=== PATIENT | female | born 1955 | race Caucasian/White ===

== ENCOUNTER → 2021-07-14 | Outpatient (CLI) | payer MEDICARE, MEDICAID ==
[~2021-07-14] VITALS: Ht 152 cm; Wt 53.0 kg
[~2021-07-14] MED LIST: ASPI-1238 PO; BUPR150T24 PO; CALC-140 PO; CATHETER FLUSH 10 ML SYR IV PRN; DESV50TA PO; GABA-488 PO; IBUP-1780 PO; LEVO75TA6 PO; MIRA50TA PO; MTP25TSR PO; MULT-1044 PO; NF-ESOM40C PO; NRT10C PO; PSYL0.526 PO; REGADENOSON 0.4 MG/5 ML SYR (LEXISCAN) IV ONE; ROPI0.5T4 PO; SIMV10TA26 PO; TOLT4CAP26 PO; TOPI50TA13 PO; VALA10007 PO; WARF-48 PO
[2021-07-14 09:57] VITALS: BP 111/62
--- NOTE | 2021-07-14 11:59 | NUCLEAR STRESS TEST ---
REGADENOSON NUCLEAR STRESS Date of procedure: 07/14/2021. Primary care provider: Chico Barth DO Admitting physician: Ifeanyi Alvarez Jr., MD. INDICATION: Abnormal electrocardiogram. BASELINE ELECTROCARDIOGRAM: Sinus rhythm with low voltage in the precordial leads and poor R wave progression. STRESS TEST PROCEDURE: The patient was administered 0.4 mg of intravenous Regadenoson. The resting heart rate was 66 bpm and the peak heart rate was 105 bpm. The resting blood pressure was 131/78 mmHg and the minimum blood pressure was 103/59 mmHg. This represents a normal heart rate and a normal blood pressu re response to Regadenoson. The test was stopped due to the protocol. There was no chest discomfort during the test. There were no arrhythmias during the test. There were no significant stress induced electrocardiogram changes. NUCLEAR PROCEDURE: The patient was administered 9.2 mCi of intravenous technetium 99m Tetrofosmin at rest for the rest images. The patient was subsequ ently administered 29 mCi of intravenous technetium 99m Tetrofosmin at peak stress for the stress images. Following an appropriate wait after each injection, imaging was obtained. The images were subsequently processed and reformatted in the usual views. Gated imaging was obtained. The image quality was adequate with a mild degree of gastrointestinal attenuation artifact. CT at tenuation correction was used as a adjunct to standard imaging. Both the corrected and uncorrected images were reviewed for interpretation. NUCLEAR RESULTS: There was normal myocardial perfusion in all segments without evidence of infarction or ischemia. There was normal left ventricular chamber size with an end-diastolic volume of 42 mL and an end-systolic volume of 14 mL. There was no evidence of transient ischemic dilatation. The TID ratio was 1.17. There was normal wall motion in all segments with a calculated ejection fraction of 66%. IMPRESSION: 1. Normal heart rate and blood pressure response to regadenoson. 2. There was no chest discomfort, arrhythmias, or electrocardiogram changes during the test. 3. There was normal myocardial perfusion in all segments without evidence of infarction or ischemia. 4. There was normal wall motion in all segments with a calculated ejection fraction of 66%. Certain portions of this document may have been dictated utilizing voice recognition technology. Inherent to this technology, typographical and grammatical errors may exist. As much as I am diligent to identify and correct these mistakes, some errors may remain in the document. IFEANYI ALVAREZ JR, MD Jul 14, 2021 11:59
== END ==
LOC: CARD 07:30
PROVIDERS: ATTEND Internal Medicine Cardiovascular Disease
DX: R94.31 Abnormal electrocardiogram [ECG] [EKG] (principal)
CPT/HCPCS: 78452; 93017; A9502

== ENCOUNTER → 2021-07-25 | Outpatient (CLI) | payer MEDICARE, MEDICAID ==
[~2021-07-25] MED LIST changes: -CATHETER FLUSH 10 ML SYR IV PRN; -REGADENOSON 0.4 MG/5 ML SYR (LEXISCAN) IV ONE
== END ==
LOC: CARD 15:00
PROVIDERS: ATTEND Internal Medicine Cardiovascular Disease
DX: I34.0 Nonrheumatic mitral (valve) insufficiency (principal); I51.7 Cardiomegaly
CPT/HCPCS: 93306